=== PATIENT | female | born 1955 | race African-American/Black ===

== ENCOUNTER 2018-03-29 11:06 | Outpatient (CLI) | payer BC ==
--- NOTE | 2018-03-29 12:02 | RAD ---
CHEST PA AND LATERAL: History: 62-year-old female with history of cough and wheezing. Comparison: 05-04-16 FINDINGS: Heart size is within normal limits. The lungs are clear of acute process. Less inspiration than on th e prior study. IMPRESSION: No acute intrathoracic disease. No evidence for pneumonia. POS: [facility]
== END 2018-03-29 11:07 | disposition home or self-care (01) ==
LOC: BICRAD 11:06
PROVIDERS: ATTEND Family Medicine
DX: R05 Cough (principal)
CPT/HCPCS: 71046